=== PATIENT | female | born 1995 | race Caucasian/White ===

== ENCOUNTER 2020-11-18 04:42 | Emergency (ER) | payer MEDICAID, OTHER ==
[~2020-11-18] VITALS: Ht 152.4 cm; Wt 72.6 kg
[~2020-11-18 04:42] MED LIST: PREN1TAB59 PO
[2020-11-18 04:48] VITALS: BP 128/70
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
--- NOTE | 2020-11-18 04:55 | NUR ---
ED Physician Call placed to EDP Dr. Urbina at this time by Daily Wasserman RN. Informed of patient's condition. Advised to contact the [employer] saxophone assembler to inform of pending images.
--- NOTE | 2020-11-18 04:58 | NUR ---
Radiology Called Call placed to Jane (Lead Caster Helper) to inform of pending x-ray at this time by Daily Wasserman RN.
[2020-11-18] MEDS ORDERED: NS 1000ML 2,000 ML ONE (05:13)
[2020-11-18] MEDS ORDERED: NS 1000ML 1,000 ML IV STA (05:14)
[2020-11-18] MEDS ORDERED: LIDOCAINE 1% VIAL ONE (05:23)
--- NOTE | 2020-11-18 05:25 | NUR ---
EMERGENCY CONTACT CALL PLACED TO PT'S MOTHER A BY GERA HENDRIX AT THIS TIME.
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
--- NOTE | 2020-11-18 05:30 | NUR ---
MORPHINE VERBAL ORDER RECEIVED FOR MORPHINE 4MG AND ZOFRAN 4MG PER DR. MCLEAN
[2020-11-18] MEDS ORDERED: TRIPLE ANTIBIOTIC OINTMENT TP ONE (05:31)
[2020-11-18] MEDS ORDERED: ZOFRAN ONE (05:31)
[2020-11-18] MEDS ORDERED: MORPHINE SULFATE ONE (05:32)
--- NOTE | 2020-11-18 05:34 | NUR ---
X-RAY DENISE (FLAT BREAKDOWN PROCESSOR) AT BEDSIDE AT THIS TIME.
--- NOTE | 2020-11-18 05:37 | NUR ---
JENNIFER COLON MBA ON THE PHONE WITH DR. ESPINOZA FOR POSSIBLE TRANSFER ER TO ER.
[2020-11-18 05:38] VITALS: BP_SYST 114; BP_DIAS 70; BP_DIAS 73
[2020-11-18 05:39] LABS: BASOPHIL % 0.1 % (0.0-0.2); EOSINOPHIL % 0.1 % (0.0-5.0); LYMPHOCYTES # 2.83 10^3/uL1 (1.0-4.8); LYMPHOCYTES % 16.5 % (24.0-44.0); MEAN CORP HGB 30.9 pg (26-34); MONOCYTES # 1.1 10^3/uL (0.3-0.8); MONOCYTES % 6.5 % (5.0-12.0); NEUTROPHIL # 13.2 10^3/uL (1.8-7.7); NEUTROPHILS % 76.6 % (41.0-85.0); PLATELET COUNT 373 10^3/uL (150-400); RED CELL DISTRIBUTION WIDTH 14.3 % (11.5-14.5)
--- NOTE | 2020-11-18 05:40 | NUR ---
REASSESSMENT PT CALM AND COOPERATIVE AT THIS TIME. BREATHING CONTROLLED, PT IN NAD WITH RR EVEN AND UNLABORED. PT IS AWAKE AND ALERT, CONVERSANT AND COOPERATIVE WITH STAFF.
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
--- NOTE | 2020-11-18 05:45 | NUR ---
CT PT TRANSPORTED TO CT AT THIS TIME. PT IN NAD WITH RR EVEN AND UNLABORED.
--- NOTE | 2020-11-18 05:45 | NUR ---
Leonela zafar in ED - 11/18/20 at [address] PT TRANSPORTED TO CT AT THIS TIME.
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
[2020-11-18 05:57] LABS: CALCIUM 9.4 mg/dL (8.4-10.5); CARBON DIOXIDE 23.8 mmol/L (20.0-32)
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
[2020-11-18] MEDS ORDERED: ZOFRAN IV STA (06:15)
[2020-11-18] MEDS ORDERED: MORPHINE SULFATE IV STA (06:15)
--- NOTE | 2020-11-18 06:24 | NUR ---
BACK FROM CT RECONNECTED TO BEDSIDE MONITOR. POLICE TO SPEAK WITH PATIENT.
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
[2020-11-18 06:45] VITALS: BP 142/86
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
--- NOTE | 2020-11-18 07:00 | DIREP ---
PROCEDURE:XRAY HAND MIN 3 VW-RT COMPARISON:None. INDICATIONS:pain FINDINGS: BONES:Normal. JOINTS:Normal. SOFT TISSUES:Normal. OTHER:No additional findings. CONCLUSION:No visualized acute injury Dictated by: Stuart Newton DO on 11/18/2020 at 06:58 AM
--- NOTE | 2020-11-18 07:01 | DIREP ---
PROCEDURE:XRAY HAND MIN 3 VW-LT COMPARISON:None. INDICATIONS:pain FINDINGS: BONES:Normal. JOINTS:Normal. SOFT TISSUES:Second digit swelling. OTHER:No additional findings. CONCLUSION:Soft tissue swelling around the 2nd digit. No fracture Dictated by: Stuart Newton DO on 11/18/2020 at 06:59 AM
--- NOTE | 2020-11-18 07:01 | DIREP ---
PROCEDURE:XRAY KNEE 2 VWS-LT COMPARISON:None. INDICATIONS:Pain FINDINGS: BONES:Normal. JOINTS:Normal. SOFT TISSUES:Minimal prepatellar soft tissue swelling. OTHER:No additional findings. CONCLUSION:Minimal soft tissue swelling without acute bony abnormality noted. Dictated by: Artemio Corona M.D. on 11/18/2020 at 06:58 AM
--- NOTE | 2020-11-18 07:05 | NUR ---
[facility] ACCEPTANCE DR FORBES ACCEPTING ER TO ER. ANA OFNG.
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
--- NOTE | 2020-11-18 07:07 | NUR ---
DISPATCH DISPATCH CALLED FOR TRANSFER TO [facility].
--- NOTE | 2020-11-18 07:17 | NUR ---
TRANSPORT EMS CALLED AND STATED TRANSFER WILL BE IN [address]OV[address] MARTÍNEZ.
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
[2020-11-18 07:40] VITALS: BP 146/88
--- NOTE | 2020-11-18 07:59 | NUR ---
VOID PT AMBULATED TO RESTROOM, VOIDED AND AMBULATED BACK TO ROOM.
[2020-11-18 08:05] VITALS: BP 146/95
[2020-11-18 08:18] VITALS: BP_SYST 144
== END 2020-11-18 08:30 | disposition home or self-care (01) ==
LOC: ER 04:42
DX: S21.111A Laceration without foreign body of right front wall of thorax without penetration into thoracic cavity, initial encounter (principal); J93.9 Pneumothorax, unspecified; S00.12XA Contusion of left eyelid and periocular area, initial encounter; S30.1XXA Contusion of abdominal wall, initial encounter; S20.229A Contusion of unspecified back wall of thorax, initial encounter; V02.90XA Pedestrian on foot injured in collision with two- or three-wheeled motor vehicle, unspecified whether traffic or nontraffic accident, initial encounter; Y93.89 Activity, other specified; Y92.488 Other paved roadways as the place of occurrence of the external cause; Y99.8 Other external cause status
CPT/HCPCS: 12002; 36415; 70450; 70486; 71045; 71260; 72125; 72128; 73130 ×2; 73560; 74177; 80053; 84703; 85025; 85610; 85730; 96361; 96374; 96375; 99291; J2001; J2270; J2405; J7030; Q9965; 99285